=== PATIENT | female | born 1975 | race Caucasian/White ===

== ENCOUNTER → 2016-10-19 | Outpatient (CLI) | payer OTHER ==
[~2016-10-19] MED LIST: BACTRIM DS 8001 TAB PO; CEPHALEXIN500 M1 PO; DARVOCET N 101 UDTAB PO; DEPO-PROVER150 MG/M1 IM; DRAMAMINE25 MG PO; NORCO 325 MG-51 TAB PO; NORCO PO; OMNICEF 300MG300 MG PO; PAXIL20 MG PO; PEN-VEE K500 MG PO; PERCOCET 325 MG1 TA2 PO; PERCOCET 5/321 UDTAB PO; PRILOSEC40 MG PO; PROZAC 20MG20 MG PO; TOPROL XL 25MG25 MG PO; ULTRAM 50MG TAB50 MG PO; ZOFRAN ODT4 MG PO; ZOFRAN8 MG PO
[2016-10-19 09:21] LABS: HEMATOCRIT 39.4 % (37.0-47.0); HEMOGLOBIN 13.2 g/dl (12.5-16.0); MEAN CELL VOLUME 93 fl (80.0-100.0); MEAN CORPUSCULAR HEMOGLOBIN 31 pg (27.0-31.0); MEAN CORPUSCULAR HGB CONC 34 g/dl (33.0-37.0); MEAN PLATELET VOLUME 8.9 fl (7.4-10.4); PLATELET COUNT 268 K/mm3 (130-400); RED BLOOD COUNT 4.25 M/mm3 (4.10-5.30); REDCELL DISTRIBUTION WIDTH-CV 12.8 % (11.5-14.5); WHITE BLOOD COUNT 4.8 K/mm3 (4.8-10.8)
[2016-10-19 09:41] LABS: ADJUSTED CALCIUM 9.4 mg/dL (8.4-10.2); ALBUMIN 3.7 gm/dL (3.5-5.0); BILIRUBIN,TOTAL 0.8 mg/dL (0.0-1.0); CALCIUM 9.2 mg/dL (8.4-10.2); CREATININE, serum 0.75 mg/dL (0.52-1.25); POTASSIUM 3.9 mmol/L (3.4-5.0); TOTAL PROTEIN 6.8 gm/dL (6.4-8.2)
[2016-10-19 10:10] LABS: THYROID STIMULATING HORMONE 1.17 uIU/mL (0.465-4.680)
== END ==
LOC: COL.LAB 08:38
DX: R07.89 Other chest pain (principal); R00.2 Palpitations; Z72.0 Tobacco use

== ENCOUNTER → 2016-10-30 | Outpatient (CLI) | payer OTHER | LOC: COL.RAD 11:30 | DX: Z86.011 Personal history of benign neoplasm of the brain (principal) | CPT/HCPCS: Q9967 ==

== ENCOUNTER 2016-11-18 16:16 | Emergency (ER) | payer OTHER ==
[~2016-11-18] VITALS: Ht 154.9 cm; Wt 52.7 kg
[~2016-11-18 16:16] MED LIST changes: -OMNICEF 300MG300 MG PO; -ZOFRAN ODT4 MG PO
[2016-11-18 17:03] LABS: BASO % 0.2 % (0.0-2.0); EOS % 0.2 % (0-4.0); GRAN # 13.7 (1.4-6.5); HEMATOCRIT 37.2 % (37.0-47.0); HEMOGLOBIN 12.8 g/dl (12.5-16.0); LYMPH # 0.8 (1.2-3.4); LYMPH % 5.5 % (20.0-51.0); MEAN CELL VOLUME 91 fl (80.0-100.0); MEAN CORPUSCULAR HEMOGLOBIN 31 pg (27.0-31.0); MEAN CORPUSCULAR HGB CONC 34 g/dl (33.0-37.0); MEAN PLATELET VOLUME 9.5 fl (7.4-10.4); MONO # 0.6 (0.1-0.6); MONO % 3.8 % (1.7-9.3); PLATELET COUNT 261 K/mm3 (130-400); RED BLOOD COUNT 4.08 M/mm3 (4.10-5.30); REDCELL DISTRIBUTION WIDTH-CV 12.6 % (11.5-14.5); WHITE BLOOD COUNT 15.2 K/mm3 (4.8-10.8)
[2016-11-18 17:20] LABS: PH 6 (5-8); URINE APPEARANCE Cloudy; URINE BACTERIA Rare /hpf; URINE BILIRUBIN Negative (NEGATIVE); URINE BLOOD 1+ (NEGATIVE); URINE COLOR Yellow; URINE GLUCOSE Negative (NEGATIVE); URINE KETONE 1+ (NEGATIVE); URINE UROBILINOGEN Negative (NEGATIVE); URINE WBC >50 /hpf
[2016-11-18 17:26] LABS: ADJUSTED CALCIUM 9.2 mg/dL (8.4-10.2); ALBUMIN 3.7 gm/dL (3.5-5.0); BILIRUBIN,TOTAL 0.7 mg/dL (0.0-1.0); CREATININE, serum 0.73 mg/dL (0.52-1.25); POTASSIUM 3.3 mmol/L (3.4-5.0); TOTAL PROTEIN 6.7 gm/dL (6.4-8.2)
[2016-11-18] MEDS ORDERED: OMNICEF 300MG300 MG PO (20:29)
[2016-11-18] MEDS ORDERED: PERCOCET 325 MG1 TA2 PO (20:29)
[2016-11-18] MEDS ORDERED: ZOFRAN ODT4 MG PO (20:29)
[2016-11-18 20:56] VITALS: BP 143/83; PULSE 104; TEMP 99.1
== END 2016-11-18 21:05 | disposition home or self-care (01) ==
LOC: COL.ER 16:16
PROVIDERS: Emergency Medicine
DX: N12 Tubulo-interstitial nephritis, not specified as acute or chronic (principal); R10.31 Right lower quadrant pain
CPT/HCPCS: J0696; J1170; J2550; J7030; Q9967

== ENCOUNTER 2017-12-16 20:03 | Emergency (ER) | payer MEDICAID ==
[~2017-12-16] VITALS: Ht 154.9 cm; Wt 51.8 kg
[~2017-12-16 20:03] MED LIST changes: +OMNICEF 300MG300 MG PO; +ZOFRAN ODT4 MG PO
[2017-12-16 20:06] VITALS: TEMP 98
[2017-12-16 20:22] LABS: COLLECTION METHOD CLEAN CATCH
[2017-12-16 20:30] LABS: PH 6 (5-8); SQUAMOUS EPITHELIAL 0-2 /hpf; URINE APPEARANCE Clear; URINE BACTERIA Rare /hpf; URINE BILIRUBIN Negative (NEGATIVE); URINE BLOOD 2+ (NEGATIVE); URINE COLOR Straw; URINE GLUCOSE Negative (NEGATIVE); URINE KETONE Negative (NEGATIVE); URINE LEUKOCYTE ESTERASE Negative (NEGATIVE); URINE NITRATE Negative (NEGATIVE); URINE PROTEIN(semi-quant) Negative (NEGATIVE); URINE RBC 0-2 /hpf; URINE UROBILINOGEN Negative (NEGATIVE)
[2017-12-16 20:34] LABS: BASO % 0.4 % (0.0-2.0); EOS # 0.1 (0.0-0.7); EOS % 1.4 % (0-4.0); GRAN # 2.8 (1.4-6.5); GRAN % 55.8 % (42.2-75.2); HEMATOCRIT 37.8 % (37.0-47.0); HEMOGLOBIN 12.9 g/dl (12.5-16.0); LYMPH # 1.7 (1.2-3.4); LYMPH % 33.5 % (20.0-51.0); MEAN CELL VOLUME 92 fl (80.0-100.0); MEAN CORPUSCULAR HEMOGLOBIN 31 pg (27.0-31.0); MEAN CORPUSCULAR HGB CONC 34 g/dl (33.0-37.0); MEAN PLATELET VOLUME 8.9 fl (7.4-10.4); MONO # 0.4 (0.1-0.6); MONO % 8.7 % (1.7-9.3); PLATELET COUNT 273 K/mm3 (130-400); RED BLOOD COUNT 4.12 M/mm3 (4.10-5.30); REDCELL DISTRIBUTION WIDTH-CV 12.7 % (11.5-14.5)
[2017-12-16 21:45] VITALS: BP 129/78; PULSE 90
== END 2017-12-16 21:47 | disposition home or self-care (01) ==
LOC: COL.ER 20:03
PROVIDERS: Emergency Medicine
DX: O20.0 Threatened abortion (principal); O99.331 Smoking (tobacco) complicating pregnancy, first trimester; F17.210 Nicotine dependence, cigarettes, uncomplicated; Z3A.01 Less than 8 weeks gestation of pregnancy

== ENCOUNTER → 2019-01-14 | Outpatient (CLI) | payer BC, MEDICAID ==
[~2019-01-14] MED LIST changes: +ASPIRIN 81M81 MG/TA2 PO; +NATURAL IRON65 MG PO; +VITAMIN B COMPL1 SGL PO; +VITAMIN D31000 I1 PO
== END ==
LOC: COL.CARD 08:11
DX: R00.2 Palpitations (principal)

== ENCOUNTER → 2019-09-04 | Outpatient (CLI) | payer BC, MEDICAID | LOC: MC.RAD 08:03 | DX: Z12.31 Encounter for screening mammogram for malignant neoplasm of breast (principal) ==

== ENCOUNTER 2023-08-29 07:15 | Day surgery (SDC) | payer OTHER ==
[~2023-08-29] VITALS: Ht 154.9 cm; Wt 55.8 kg
[~2023-08-29 07:15] MED LIST changes: +FLOMAX 0.40.4 MG/CAP PO; +VANTIN 200200 MG/TAB PO
[2023-08-29] MEDS ORDERED: ADDERALL5 MG PO (07:50)
[2023-08-29] MEDS ORDERED: ADDERALL XR5 MG PO (07:51)
[2023-08-29 09:15] VITALS: BP 104/69; PULSE 98
--- NOTE | 2023-08-29 09:15 | NUR ---
PATIENT RETURNS TO BAY 3 PER CART AND TRANSFERS FROM CART TO RECLINER WITH ONE PERSON ASSIST. ALERT AND ORIENTED X3. IVF INFUSING. TEMP 97.6. DENIES PAIN OR NAUSEA. GIVEN JUICE, WATER, AND MUFFIN. SPOUSE IN ROOM. CALL LIGHT IN REACH. 0930 142/97, 82, 16, 100% ON RA. TOLERATES SNACK. WILL CONTINUE TO MONITOR BP. 0945 133/85, 83, 16, 98% ON RA. IV DC'D AND SITE FREE OF REDNESS. DRESSES SELF. 0947 DR. MCKAY IN THE ROOM AND TALKING WITH THE PATIENT AND SPOUSE. ALL QUESTIONS ANSWERED. DISCHARGE INSTRUCTIONS GIVEN AND SIGNED. 0955 DISCHARGED TO HOME DRIVEN BY SPOUSE AND TAKEN TO VEHICLE PER WHEELCHAIR AND ASSISTED INTO CAR WITH INSTRUCTIONS IN HAND.
[2023-08-29 11:25] VITALS: BP 119/77; PULSE 68; TEMP 97.3
== END 2023-08-29 09:55 | disposition home or self-care (01) ==
LOC: SDCO 07:15
DX: Z12.11 Encounter for screening for malignant neoplasm of colon (principal); Z87.891 Personal history of nicotine dependence
CPT/HCPCS: J2704; J7120